=== PATIENT | male | born 1965 | race Caucasian/White ===

== ENCOUNTER 2022-01-18 13:28 | Emergency (ER) | payer BC ==
[2022-01-18] MEDS ORDERED: Sodium Chloride 0.9% 10 ML Syringe FLUSH PRN (14:02)
[2022-01-18] MEDS ORDERED: Ketorolac 30 MG/ML SDV IVPUSH ONE (14:02)
[2022-01-18] MEDS ORDERED: Sodium Chloride 0.9% 1,000 ML IV ONE (14:03)
[2022-01-18] MEDS ORDERED: HYDROmorphone 1 MG/ML Syringe IVPUSH ONE (14:28)
[2022-01-18] MEDS ORDERED: Tamsulosin 0.4 MG Cap.ER PO ONE (14:59)
== END 2022-01-18 15:45 | disposition home or self-care (01) ==
LOC: JP.ED 13:28
DX: K57.30 Diverticulosis of large intestine without perforation or abscess without bleeding (principal); N20.0 Calculus of kidney; I10 Essential (primary) hypertension; Z88.0 Allergy status to penicillin; Z79.899 Other long term (current) drug therapy
CPT/HCPCS: 36415; 74176; 80048; 81001; 85025; 86140; 96361; 96374; 96375; 99284; A9270; J1170; J1885; J3490; J7030